=== PATIENT | female | born 1975 | race Caucasian/White ===

== ENCOUNTER 2017-12-18 08:55 | Observation (INO) ==
[2017-12-18] MEDS ORDERED: SODIUM CHLORIDE 0.9% 1,000 ML IV STA (09:17)
[2017-12-18] MEDS ORDERED: ONDANSETRON 4 MG/2 ML VIAL IV STA (09:17)
[2017-12-18] MEDS ORDERED: HYDROmorphone 2 MG/1 ML VIAL IV STA (09:17)
[2017-12-18] MEDS ORDERED: ONDANSETRON 4 MG/2 ML VIAL ONE ×3 (09:22→16:36)
[2017-12-18] MEDS ORDERED: HYDROmorphone 2 MG/1 ML VIAL ONE (09:23)
[2017-12-18 10:14] LABS: Amorphous Crystals,Urine Few /HPF (Few); Apearance,Urine Slightly Hazy (Clear); Bilirubin,Urine Negative (Negative); Blood, Urine Negative (Negative); Glucose,Urine (UA) Negative (Negative); Ketones,Urine Negative (Negative); Mucus,Urine Occasional /LPF (Occasional); Nitrite,Urine Negative (Negative); Protein,Urine 100 MG/DL; RBC,Urine <1 /HPF (0-4); Squamous Epithelial Cell,Urine Occasional /HPF (0-10); Urine Color Yellow (Yellow); Urine Urobilinogen < 2.0 EU/DL (0.2-1.0)
[2017-12-18] MEDS ORDERED: KETOROLAC 30 MG/1 ML VIAL IV STA (10:17)
[2017-12-18] MEDS ORDERED: KETOROLAC 30 MG/1 ML VIAL ONE ×2 (10:18→16:36)
[2017-12-18 10:30] LABS: Albumin 3.8 G/DL (3.4-5.0); Bilirubin,Total 0.4 MG/DL (0.2-1.0); Calcium 8.6 MG/DL (8.5-10.1); Total Protein 7.1 G/DL (6.4-8.3)
[2017-12-18 10:31] LABS: Osmolality,Calculated 279.4 MOS/KG (273-304); Potassium 4.1 MMOL/L (3.5-5.1)
[2017-12-18 10:38] LABS: Basophils # 0.1 10*3/uL (0.0-0.2); Basophils % 0.8 % (0.0-0.8); Eosinophils # 0.1 10*3/uL (0.0-0.87); Hematocrit 41.1 VOL% (35.7-47.0); Hemoglobin 13.3 GM/DL (12.0-16.0); Immature Granulocytes % 0.5 %; Immature Granulocytes Absolute 0.03 #; Lymphocytes # 1.5 10*3/uL (1.4-4.0); Lymphocytes % 22.7 % (21.3-54.2); Mean Corpuscular HGB Conc 32.4 GM/DL (32-36); Mean Corpuscular Hemoglobin 29 PG (27-34); Mean Corpuscular Volume 89.5 FL (87-102); Mean Platelet Volume 11.4 FL (9.6-12.0); Monocytes # 0.5 10*3/uL (0.11-0.8); Monocytes % 8.1 % (1.7-12.7); Neutrophils # 4.3 10*3/uL (1.4-7.4); Neutrophils % 65.9 % (38.7-73.9); Platelet Count 252 T/CUMM (130-400); Red Blood Count 4.59 MC/CUMM (3.8-5.5); Red Cell Distribution Width 12.8 % (9.3-17.3); White Blood Count 6.5 T/CUMM (4-12)
[2017-12-18] MEDS ORDERED: BUPIVACAINE 0.25% 50 ML VIAL ONE (15:09)
[2017-12-18] MEDS ORDERED: TISSUE ADHESIVE 1 EACH APPLICATOR TOP ONE (15:53)
[2017-12-18] MEDS ORDERED: ONDANSETRON 4 MG/2 ML VIAL IV PRN ×3 (16:27→17:30)
[2017-12-18] MEDS ORDERED: DEXTROSE 5% LACTATED RINGERS 1,000 ML IV SCH (16:30)
[2017-12-18] MEDS ORDERED: MEPERIDINE 25 MG/1 ML VIAL ONE (16:33)
[2017-12-18] MEDS ORDERED: fentaNYL 100 MCG/2 ML VIAL ONE (16:36)
[2017-12-18] MEDS ORDERED: MIDAZOLAM 2 MG/2 ML VIAL ONE (16:36)
[2017-12-18] MEDS ORDERED: GLYCOPYRROLATE 0.4 MG/2 ML VIAL ONE (16:36)
[2017-12-18] MEDS ORDERED: PROPOFOL 200 MG/20 ML VIAL IV ONE (16:36)
[2017-12-18] MEDS ORDERED: DEXAMETHASONE 10 MG/1 ML VIAL ONE (16:36)
[2017-12-18] MEDS ORDERED: SEVOFLURANE 1 UNIT/15 MINUTE INH ONE (16:36)
[2017-12-18] MEDS ORDERED: ACETAMINOPHEN 1,000 MG/100 ML VIAL IV ONE (16:37)
[2017-12-18] MEDS ORDERED: SODIUM CHLORIDE 0.9% 0 ML IV ONE (16:37)
[2017-12-18] MEDS ORDERED: ROCURONIUM 100 MG/10 ML VIAL IV ONE (16:37)
[2017-12-18] MEDS ORDERED: MEPERIDINE 25 MG/1 ML VIAL IV PRN (16:42)
[2017-12-18] MEDS ORDERED: IBUPROFEN 800 MG TABLET PO PRN (17:30)
[2017-12-18] MEDS ORDERED: LACTATED RINGERS 1,000 ML IV SCH (17:30)
[2017-12-18] MEDS ORDERED: ALPRAZolam 0.5 MG TABLET PO PRN (17:30)
[2017-12-18] MEDS ORDERED: BISACODYL 10 MG SUPP RECTAL PRN (17:30)
[2017-12-18] MEDS ORDERED: MORPHINE 10 MG/10 ML VIAL IV PRN (17:30)
[2017-12-18] MEDS ORDERED: ACETAMINOPHEN 325 MG TABLET PO PRN (17:30)
[2017-12-18] MEDS ORDERED: MAGNESIUM HYDROXIDE SUSP 30 ML UDCUP PO PRN (17:30)
[2017-12-18] MEDS ORDERED: LACTATED RINGERS 1,000 ML IV ONE (17:45)
[2017-12-18] MEDS ORDERED: NEOSTIGMINE 10 MG/10 ML VIAL ONE (17:45)
[2017-12-18] MEDS: IBUPROFEN 800 MG TABLET PO PRN (18:36)
[2017-12-18] MEDS: LACTATED RINGERS 1,000 ML IV SCH (19:14)
[2017-12-18] MEDS ORDERED: PANTOPRAZOLE 40 MG TABLET PO SCH (21:00)
[2017-12-18] MEDS ORDERED: LOVASTATIN 20 MG TABLET PO SCH (21:00)
[2017-12-18] MEDS ORDERED: FLUoxetine 20 MG CAPSULE PO SCH (21:00)
[2017-12-18] MEDS: DOCUSATE SODIUM 100 MG CAPSULE PO SCH (21:12)
[2017-12-19] MEDS: LACTATED RINGERS 1,000 ML IV SCH (01:41)
[2017-12-19] MEDS: IBUPROFEN 800 MG TABLET PO PRN (01:41)
[2017-12-19] MEDS ORDERED: cefOXitin 2,000 MG in SYRINGE 1 EACH IV SCH (08:00)
[2017-12-19] MEDS: DOCUSATE SODIUM 100 MG CAPSULE PO SCH (08:41)
[2017-12-19] MEDS ORDERED: LOSARTAN 25 MG TABLET PO SCH (09:00)
[2017-12-19 12:56] VITALS: BP 101/62
== END 2017-12-19 14:50 | disposition home or self-care (01) ==
LOC: N.EDINP 08:55 → N.ED 08:55 → N.OB 15:03
PROVIDERS: ADMIT Obstetrics & Gynecology; ATTEND Obstetrics & Gynecology

== ENCOUNTER 2019-01-21 07:27 | Inpatient (IN) ==
[2019-01-21] MEDS ORDERED: SODIUM CHLORIDE 0.9% 1,000 ML IV STA (08:09)
[2019-01-21] MEDS ORDERED: ONDANSETRON 4 MG/2 ML VIAL IV STA (08:09)
[2019-01-21 08:15] LABS: Apearance,Urine CLEAR (Clear); Bacteria,Urine Occasional /HPF (Few); Bilirubin,Urine Negative (Negative); Blood, Urine Small mg/dL (Negative); Glucose,Urine (UA) Negative (Negative); Ketones,Urine Negative (Negative); Mucus,Urine Few /LPF (Occasional); Nitrite,Urine Negative (Negative); Protein,Urine Negative; RBC,Urine 3 /HPF (0-4); Squamous Epithelial Cell,Urine Occasional /HPF (0-10); Urine Color Yellow (Yellow); Urine Specific Gravity 1.019 (1.001-1.035); Urine Urobilinogen < 2.0 EU/DL (0.2-1.0); WBC,Urine <1 /HPF (0-6)
[2019-01-21 08:27] LABS: Basophils % 0.3 % (0.0-0.8); Eosinophils % 0.2 % (0.00-10.9); Hematocrit 40.3 VOL% (35.7-47.0); Hemoglobin 13.3 GM/DL (12.0-16.0); Immature Granulocytes % 0.3 %; Immature Granulocytes Absolute 0.04 #; Lymphocytes % 7.8 % (21.3-54.2); Mean Corpuscular Hemoglobin 29 PG (27-34); Mean Corpuscular Volume 87.6 FL (87-102); Mean Platelet Volume 10.4 FL (9.6-12.0); Monocytes # 1.1 10*3/uL (0.11-0.8); Monocytes % 8.7 % (1.7-12.7); Neutrophils # 10.4 10*3/uL (1.4-7.4); Neutrophils % 82.7 % (38.7-73.9); Platelet Count 210 T/CUMM (130-400); Red Cell Distribution Width 12.7 % (9.3-17.3); White Blood Count 12.6 T/CUMM (4-12)
[2019-01-21 08:45] LABS: Albumin 3.3 G/DL (3.4-5.0); Bilirubin,Total 0.6 MG/DL (0.2-1.0); Calcium 8.3 MG/DL (8.5-10.1); Osmolality,Calculated 264.4 MOS/KG (273-304); Potassium 3.8 MMOL/L (3.5-5.1); Total Protein 7.2 G/DL (6.4-8.3)
[2019-01-21] MEDS ORDERED: LEVOFLOXACIN INJ 500 MG in PREMIX 1 EACH IV STA (09:14)
[2019-01-21] MEDS ORDERED: HYDROmorphone 2 MG/1 ML VIAL IV STA (09:17)
[2019-01-21] MEDS ORDERED: guaiFENesin/DM ER 600-30 MG TABLET PO PRN (11:23)
[2019-01-21] MEDS ORDERED: ALBUTEROL 2.5 MG/3 ML NEB RESP TX PRN (11:26)
[2019-01-21] MEDS ORDERED: LEVOFLOXACIN INJ 750 MG in PREMIX 1 EACH IV SCH (11:30)
[2019-01-21] MEDS: ACETAMINOPHEN 325 MG TABLET PO PRN (12:04)
[2019-01-21] MEDS: ENOXAPARIN 40 MG/0.4 ML SYRINGE SUBCUT SCH (12:05)
[2019-01-21] MEDS: SODIUM CHLORIDE 0.9% 1,000 ML IV SCH ×2 (12:05→19:52)
[2019-01-21] MEDS: ALBUTEROL/IPRATROPIUM 3 ML NEB RESP TX SCH ×2 (12:30→20:23)
[2019-01-21] MEDS ORDERED: CYCLOBENZAPRINE 10 MG TABLET PO PRN (13:59)
[2019-01-21] MEDS: BENZONATATE 100 MG CAPSULE PO SCH ×2 (14:09→20:40)
[2019-01-21] MEDS: MORPHINE 4 MG/1 ML VIAL IV PRN ×2 (14:09→20:40)
[2019-01-21] MEDS: ONDANSETRON 4 MG/2 ML VIAL IV PRN (19:49)
[2019-01-21] MEDS: LOSARTAN 25 MG TABLET PO SCH (20:40)
[2019-01-21] MEDS: SIMVASTATIN 10 MG TABLET PO SCH (20:40)
[2019-01-21] MEDS: FLUoxetine 20 MG CAPSULE PO SCH (20:40)
[2019-01-22] MEDS: ALBUTEROL/IPRATROPIUM 3 ML NEB RESP TX SCH ×4 (01:31→19:40)
[2019-01-22] MEDS: SODIUM CHLORIDE 0.9% 1,000 ML IV SCH ×2 (03:07→12:47)
[2019-01-22 05:29] LABS: Basophils % 0.4 % (0.0-0.8); Eosinophils % 0.4 % (0.00-10.9); Hematocrit 36.8 VOL% (35.7-47.0); Hemoglobin 11.7 GM/DL (12.0-16.0); Immature Granulocytes % 0.4 %; Immature Granulocytes Absolute 0.03 #; Lymphocytes # 1.1 10*3/uL (1.4-4.0); Lymphocytes % 13.6 % (21.3-54.2); Mean Corpuscular HGB Conc 31.8 GM/DL (32-36); Mean Corpuscular Hemoglobin 29 PG (27-34); Mean Corpuscular Volume 89.8 FL (87-102); Mean Platelet Volume 10.7 FL (9.6-12.0); Monocytes % 12.6 % (1.7-12.7); Neutrophils % 72.6 % (38.7-73.9); Platelet Count 179 T/CUMM (130-400); Red Cell Distribution Width 12.8 % (9.3-17.3); White Blood Count 8.2 T/CUMM (4-12)
[2019-01-22 06:06] LABS: Calcium 8.1 MG/DL (8.5-10.1); Osmolality,Calculated 274.7 MOS/KG (273-304); Potassium 3.5 MMOL/L (3.5-5.1)
[2019-01-22] MEDS: PANTOPRAZOLE 40 MG TABLET PO SCH (09:44)
[2019-01-22] MEDS: BENZONATATE 100 MG CAPSULE PO SCH ×3 (09:44→21:08)
[2019-01-22] MEDS: MORPHINE 4 MG/1 ML VIAL IV PRN ×3 (10:03→21:03)
[2019-01-22] MEDS: LEVOFLOXACIN INJ 750 MG in PREMIX 1 EACH IV SCH (12:48)
[2019-01-22] MEDS: ENOXAPARIN 40 MG/0.4 ML SYRINGE SUBCUT SCH (12:48)
[2019-01-22] MEDS: ONDANSETRON 4 MG/2 ML VIAL IV PRN (14:17)
[2019-01-22] MEDS: FLUoxetine 20 MG CAPSULE PO SCH (21:08)
[2019-01-22] MEDS: LOSARTAN 25 MG TABLET PO SCH (21:08)
[2019-01-22] MEDS: SIMVASTATIN 10 MG TABLET PO SCH (21:08)
[2019-01-22] MEDS: ACETAMINOPHEN 325 MG TABLET PO PRN (21:09)
[2019-01-23] MEDS: SODIUM CHLORIDE 0.9% 1,000 ML IV SCH ×2 (00:21→09:23)
[2019-01-23] MEDS: ALBUTEROL/IPRATROPIUM 3 ML NEB RESP TX SCH ×2 (00:51→08:07)
[2019-01-23 04:44] LABS: Basophils % 0.4 % (0.0-0.8); Eosinophils # 0.2 10*3/uL (0.0-0.87); Eosinophils % 2.7 % (0.00-10.9); Hemoglobin 11.6 GM/DL (12.0-16.0); Immature Granulocytes % 0.3 %; Immature Granulocytes Absolute 0.02 #; Lymphocytes # 1.1 10*3/uL (1.4-4.0); Lymphocytes % 15.3 % (21.3-54.2); Mean Corpuscular HGB Conc 32.2 GM/DL (32-36); Mean Corpuscular Hemoglobin 29 PG (27-34); Mean Corpuscular Volume 89.6 FL (87-102); Mean Platelet Volume 10.5 FL (9.6-12.0); Monocytes # 0.8 10*3/uL (0.11-0.8); Monocytes % 11.8 % (1.7-12.7); Neutrophils # 4.8 10*3/uL (1.4-7.4); Neutrophils % 69.5 % (38.7-73.9); Platelet Count 189 T/CUMM (130-400); Red Blood Count 4.02 MC/CUMM (3.8-5.5); Red Cell Distribution Width 12.6 % (9.3-17.3)
[2019-01-23 05:22] LABS: Calcium 7.8 MG/DL (8.5-10.1); Osmolality,Calculated 280.1 MOS/KG (273-304); Potassium 3.8 MMOL/L (3.5-5.1)
[2019-01-23 05:39] LABS: Microcytosis Slight
[2019-01-23 05:40] LABS: Hypochromasia Slight; Platelet Estimate Adequate
[2019-01-23] MEDS: BENZONATATE 100 MG CAPSULE PO SCH ×3 (09:24→21:45)
[2019-01-23] MEDS: PANTOPRAZOLE 40 MG TABLET PO SCH (09:24)
[2019-01-23] MEDS: ONDANSETRON 4 MG/2 ML VIAL IV PRN (09:28)
[2019-01-23] MEDS: MORPHINE 4 MG/1 ML VIAL IV PRN (09:29)
[2019-01-23] MEDS ORDERED: ALBUTEROL/IPRATROPIUM 3 ML NEB RESP TX PRN (10:10)
[2019-01-23] MEDS: DORNASE ALFA 2.5 MG/2.5 ML VIAL RESP TX SCH ×2 (11:25→19:35)
[2019-01-23] MEDS: ENOXAPARIN 40 MG/0.4 ML SYRINGE SUBCUT SCH (13:23)
[2019-01-23] MEDS: LEVOFLOXACIN INJ 750 MG in PREMIX 1 EACH IV SCH (13:27)
[2019-01-23] MEDS: FLUoxetine 20 MG CAPSULE PO SCH (21:46)
[2019-01-23] MEDS: LOSARTAN 25 MG TABLET PO SCH (21:46)
[2019-01-23] MEDS: SIMVASTATIN 10 MG TABLET PO SCH (21:46)
[2019-01-24 04:18] LABS: Basophils % 0.5 % (0.0-0.8); Eosinophils # 0.3 10*3/uL (0.0-0.87); Eosinophils % 5.4 % (0.00-10.9); Hematocrit 39.9 VOL% (35.7-47.0); Hemoglobin 12.5 GM/DL (12.0-16.0); Immature Granulocytes % 0.3 %; Immature Granulocytes Absolute 0.02 #; Lymphocytes # 1.6 10*3/uL (1.4-4.0); Lymphocytes % 26.2 % (21.3-54.2); Mean Corpuscular HGB Conc 31.3 GM/DL (32-36); Mean Corpuscular Hemoglobin 28 PG (27-34); Mean Corpuscular Volume 89.9 FL (87-102); Mean Platelet Volume 10.4 FL (9.6-12.0); Monocytes # 0.7 10*3/uL (0.11-0.8); Monocytes % 11.9 % (1.7-12.7); Neutrophils # 3.4 10*3/uL (1.4-7.4); Neutrophils % 55.7 % (38.7-73.9); Platelet Count 234 T/CUMM (130-400); Red Blood Count 4.44 MC/CUMM (3.8-5.5); Red Cell Distribution Width 12.6 % (9.3-17.3); White Blood Count 6.1 T/CUMM (4-12)
[2019-01-24 04:44] LABS: Calcium 8.5 MG/DL (8.5-10.1); Osmolality,Calculated 277.4 MOS/KG (273-304); Potassium 4.1 MMOL/L (3.5-5.1)
[2019-01-24] MEDS: DORNASE ALFA 2.5 MG/2.5 ML VIAL RESP TX SCH (07:46)
[2019-01-24] MEDS: BENZONATATE 100 MG CAPSULE PO SCH (08:02)
[2019-01-24] MEDS: PANTOPRAZOLE 40 MG TABLET PO SCH (08:02)
[2019-01-24] MEDS: ENOXAPARIN 40 MG/0.4 ML SYRINGE SUBCUT SCH (11:33)
[2019-01-24] MEDS: LEVOFLOXACIN INJ 750 MG in PREMIX 1 EACH IV SCH (11:33)
[2019-01-24 13:03] VITALS: BP 134/85
== END 2019-01-24 13:59 | disposition home or self-care (01) | DRG 195 ==
LOC: N.ED 07:27 → N.EDINP 09:14 → SUATTDRO 09:14 → N.EDINP 10:30 → N.5E 10:47
PROVIDERS: ADMIT Internal Medicine; ATTEND Internal Medicine

== ENCOUNTER 2019-07-23 18:02 | Observation (INO) ==
[2019-07-23] MEDS ORDERED: fentaNYL 100 MCG/2 ML VIAL IV STA ×2 (18:24→19:36)
[2019-07-23] MEDS ORDERED: SODIUM CHLORIDE 0.9% 1,000 ML IV STA (18:24)
[2019-07-23] MEDS ORDERED: ONDANSETRON 4 MG/2 ML VIAL IV STA (18:24)
[2019-07-23 18:39] LABS: Basophils # 0.1 10*3/uL (0.0-0.2); Basophils % 0.5 % (0.0-0.8); Eosinophils # 0.1 10*3/uL (0.0-0.87); Hematocrit 43.9 VOL% (35.7-47.0); Hemoglobin 14.6 GM/DL (12.0-16.0); Immature Granulocytes % 0.4 %; Immature Granulocytes Absolute 0.04 #; Lymphocytes # 1.4 10*3/uL (1.4-4.0); Mean Corpuscular HGB Conc 33.3 GM/DL (32-36); Mean Corpuscular Volume 87.3 FL (87-102); Monocytes % 5.7 % (1.7-12.7); Neutrophils % 77.4 % (38.7-73.9); Platelet Count 273 T/CUMM (130-400); Red Blood Count 5.03 MC/CUMM (3.8-5.5); Red Cell Distribution Width 12.8 % (9.3-17.3); White Blood Count 9.6 T/CUMM (4-12)
[2019-07-23 19:03] LABS: Alanine Aminotransferase 20 U/L (13-56); Albumin 3.7 G/DL (3.4-5.0); Alkaline Phosphatase 91 U/L (45-117); Amylase 48 U/L (25-115); Aspartate Amino Transferase 16 U/L (0-37); Blood Urea Nitrogen 11 MG/DL (7-18); Calcium 9.3 MG/DL (8.5-10.1); Estimated Glom Filtration Rate 120 ML/MIN; Glucose 114 MG/DL (74-106); Osmolality,Calculated 278.4 MOS/KG (273-304); Total Protein 7.5 G/DL (6.4-8.3); Troponin I < 0.015 NG/ML (0.00-0.045)
[2019-07-23] MEDS: HYDROmorphone 2 MG/1 ML VIAL IV PRN (21:21)
[2019-07-23] MEDS: SODIUM CHLORIDE 0.9% 1,000 ML IV SCH (22:14)
[2019-07-23 23:30] LABS: Apearance,Urine CLEAR (Clear); Bilirubin,Urine Negative (Negative); Blood, Urine Negative (Negative); Glucose,Urine (UA) Negative (Negative); Ketones,Urine 20 mg/dL (Negative); Mucus,Urine Occasional /LPF (Occasional); Nitrite,Urine Negative (Negative); Protein,Urine Negative; RBC,Urine 3 /HPF (0-4); Urine Color Yellow (Yellow); Urine Specific Gravity 1.021 (1.001-1.035); Urine Urobilinogen < 2.0 EU/DL (0.2-1.0); WBC,Urine <1 /HPF (0-6)
[2019-07-24] MEDS: ONDANSETRON 4 MG/2 ML VIAL IV PRN ×2 (02:20→14:01)
[2019-07-24] MEDS: HYDROmorphone 2 MG/1 ML VIAL IV PRN ×5 (02:33→10:16)
[2019-07-24] MEDS: SODIUM CHLORIDE 0.9% 1,000 ML IV SCH (05:44)
[2019-07-24] MEDS ORDERED: FLUORESCEIN 500 MG/5 ML VIAL IV ONE (07:53)
[2019-07-24] MEDS ORDERED: LIDOCAINE 1%/EPI INJ 20 ML VIAL ONE (07:53)
[2019-07-24] MEDS ORDERED: TISSUE ADHESIVE 1 EACH APPLICATOR TOP ONE (07:58)
[2019-07-24] MEDS ORDERED: ceFAZolin 1,000 MG VIAL ONE (08:54)
[2019-07-24] MEDS ORDERED: ONDANSETRON 4 MG/2 ML VIAL IV PRN (09:39)
[2019-07-24] MEDS ORDERED: HYDROmorphone 2 MG/1 ML VIAL ONE (09:45)
[2019-07-24] MEDS ORDERED: ONDANSETRON 4 MG/2 ML VIAL ONE ×2 (09:45→09:50)
[2019-07-24] MEDS ORDERED: LIDOCAINE 2% 5 ML VIAL ONE (09:50)
[2019-07-24] MEDS ORDERED: fentaNYL 100 MCG/2 ML VIAL ONE (09:50)
[2019-07-24] MEDS ORDERED: PROPOFOL 200 MG/20 ML VIAL IV ONE (09:50)
[2019-07-24] MEDS ORDERED: MIDAZOLAM 2 MG/2 ML VIAL ONE (09:50)
[2019-07-24] MEDS ORDERED: SEVOFLURANE 1 UNIT/15 MINUTE INH ONE (09:50)
[2019-07-24] MEDS ORDERED: DEXAMETHASONE 4 MG/1 ML VIAL ONE (09:50)
[2019-07-24] MEDS ORDERED: LACTATED RINGERS 1,000 ML IV ONE (09:51)
[2019-07-24] MEDS ORDERED: KETAMINE 500 MG/10 ML VIAL ONE (09:51)
[2019-07-24] MEDS ORDERED: NEOSTIGMINE 10 MG/10 ML VIAL ONE (09:51)
[2019-07-24] MEDS ORDERED: GLYCOPYRROLATE 0.4 MG/2 ML VIAL ONE (09:51)
[2019-07-24] MEDS ORDERED: ROCURONIUM 100 MG/10 ML VIAL IV ONE (09:51)
[2019-07-24] MEDS ORDERED: oxyCODONE/ACETAMINOPHEN 5-325 MG TABLET PO PRN ×2 (13:31)
[2019-07-24] MEDS ORDERED: KETOROLAC 30 MG/1 ML VIAL IV PRN (13:31)
[2019-07-24 17:09] VITALS: BP 98/56
== END 2019-07-24 16:40 | disposition home or self-care (01) ==
LOC: EDBD → EDUNIT# → N.EDINP 18:02 → N.ED 18:02 → N.OB 21:07
PROVIDERS: ADMIT Obstetrics & Gynecology; ATTEND Obstetrics & Gynecology